=== PATIENT | male | born 1995 | race Caucasian/White ===

== ENCOUNTER 2016-10-26 22:29 | Emergency (ER) | payer OTHER ==
[2016-10-26 23:34] VITALS: BP 116/46
[2016-10-27 01:00] LABS: Hematocrit 45 % (42-52); Hemoglobin 15.1 g/dl (14.0-18.0); Mean Corpuscular HGB Conc 34 g/dl (31-36); Mean Corpuscular Hemoglobin 31 pg (27-31); Mean Corpuscular Volume 90 fL (80-94); Mean Platelet Volume 9 um3 (7.4-10.4); Red Blood Count 4.94 10^6/ul (4.0-5.4); Red Cell Distribution Width 13 % (10.5-15); White Blood Count 6.9 10^3/ul (3.5-10.8)
[2016-10-27 01:17] LABS: Albumin 4.3 g/dL (3.2-5.2); BUN/Creatinine Ratio 22.5 (8-20); Calcium 9.6 mg/dL (8.6-10.3); EGFR African American 81.7 (>60); EGFR Non-African American 63.6 (>60); Globulin 3.3 g/dL (2-4); Magnesium 2.2 mg/dL (1.9-2.7); Potassium 3.8 mmol/L (3.5-5.0); Total Bilirubin 0.2 mg/dL (0.2-1.0); Total Protein 7.6 g/dL (6.4-8.9)
[2016-10-27 01:31] LABS: TSH (Thyroid Stimulating Horm) 1.5 mcIU/mL (0.34-5.60)
--- NOTE | 2016-10-27 02:23 | ED ---
HPI Cardiac - HPI Summary HPI Summary: Pt here w/ sensation of difficulty breathing which started yesterday. Was just "chilling" when he noticed this. Slept well last night. This morning, after getting up, noticed again he had trouble breathing when trying to take a deep breath. Was able to workout at the gym (ie lifting, squatting, etc) however reports he did make himself lightheaded a few times w/ strained breathing. Denies chest pain, ab pain, fever, chills, N/V/D, cough, sneezing, headache. Has had a mild ST from PND - nasal congestion and PND better after taking anti- histamine. Reports he's had sx like this in the past. Once as a senior in high school. Had a CXR then which was normal and sx eventually resolved on their own. Did try a nebulizer tx which made him feel worse. Had sx most recently about 2 months ago - was intermittent then and PCP ordered CXR but pt didn't have this done as he traveled back to school from home - resolved again w/o tx. He's here today as he's concerned about the consistency of his sx. Denies cardiac issues. Performs cardio exercise and/or resistance training 6 days a week w/o difficulty. No fam h/o cardiac issues. No recent travel, no smoking tobacco, no hormone use, no prolonged sitting, no h /o cancer, no h/o clotting issues, no recent trauma although he does admit he partakes in bowing. - History of Current Complaint Chief Complaint: EDUpperRespComplaint Stated Complaint: DIFF BREATHING Time Seen by Provider: 10/27/16 00:08 Hx Obtained From: Patient Pain Intensity: 4 - Allergy/Home Medications Allergies/Adverse Reactions: Allergies Allergy/AdvReac Type Severity Reaction Status Date / Time Clindamycin Allergy Mild Hives Verified 10/26/16 22:36 PMH/Surg Hx/FS Hx/Imm Hx Previously Healthy: Yes Endocrine/Hematology History: Denies: Hx Anticoagulant Therapy, Hx Blood Disorders, Hx Thyroid Disease, Hx Anemia, Hx Unexplained Bleeding, Hx Coagulopothy, Autoimmune Disease Cardiovascular History: Denies: Hx Congenital Heart Disease, Hx Deep Vein Thrombosis, Hx Embolism Respiratory History: Denies: Hx Asthma, Hx Chronic Bronchitis, Hx Pneumonia, Hx Seasonal Allergies GI History: Denies: Hx Gastroesophageal Reflux Disease Psychiatric History: Reports: Hx Anxiety Infectious Disease History: No Infectious Disease History: Denies: Traveled Outside the [place] in Last 30 Days - Family History Known Family History: Positive: None - Social History Occupation: Student Lives: With Family - frat house Alcohol Use: Weekly - 2-3 x week Substance Use Type: Reports: None, Marijuana - occasionally Hx Tobacco Use: No Smoking Status (MU): Never Smoked Tobacco Review of Systems Negative: Fever, Chills, Fatigue ENT: Other - see HPI Negative: Palpitations, Chest Pain Respiratory: Other - see HPI Negative: Abdominal Pain, Vomiting, Diarrhea, Nausea Positive: no symptoms reported Musculoskeletal: Other - admits he's not very flexible Negative: Arthralgia, Myalgia Negative: Rash, Bruising Neurological: Negative Negative: Headache, Weakness, Paresthesia, Numbness, Syncope, Slurred Speech Psychological: Normal - concerned - denies feeling more stressed than usual All Other Systems Reviewed And Are Negative: Yes Physical Exam Triage Information Reviewed: Yes Vital Signs On Initial Exam: Initial Vitals Temp Pulse Resp BP Pulse Ox 98.4 F 94 16 133/62 100 10/26/16 22:30 10/26/16 22:30 10/26/16 22:30 10/26/16 22:30 10/26/16 22:30 Vital Signs Reviewed: Yes Appearance: Positive: Well-Appearing, No Pain Distress, Well-Nourished Skin: Positive: Warm, Dry - no rash Head/Face: Positive: Normal Head/Face Inspection Eyes: Positive: Normal, EOMI, Conjunctiva Clear. Negative: Conjunctiva Inflammed, Discharge ENT: Positive: Normal ENT inspection, Hearing grossly normal, Pharynx normal, TMs normal. Negative: Nasal congestion, Nasal drainage Neck: Positive: Supple, Nontender Respiratory/Lung Sounds: Positive: Clear to Auscultation, Breath Sounds Present. Negative: Rales, Rhonchi, Stridor, Tracheal Deviation, Wheezes Cardiovascular: Positive: Normal, RRR, Pulses are Symmetrical in both Upper and Lower Extremities, S1, S2. Negative: Murmur, Rub, Leg Edema Left, Leg Edema Right - (-) Santos's sign Abdomen Description: Positive: Nontender, No Organomegaly, Soft Bowel Sounds: Positive: Present Musculoskeletal: Positive: Normal, Strength/ROM Intact Neurological: Positive: Normal, Sensory/Motor Intact, Alert, Oriented to Person Place, Time, CN Intact II-III Psychiatric: Positive: Anxious Diagnostics - Vital Signs Vital Signs Temp Pulse Resp BP Pulse Ox 10/26/16 23:33 98.0 F 71 16 116/46 100 10/26/16 22:30 98.4 F 94 16 133/62 100 - Laboratory Lab Results: Lab Results 10/27/16 10/27/16 10/27/16 Range/Units 00:45 00:45 00:45 WBC 6.9 (3.5-10.8) 10^3/ul RBC 4.94 (4.0-5.4) 10^6/ul Hgb 15.1 (14.0-18.0) g/dl Hct 45 (42-52) % MCV 90 (80-94) fL MCH 31 (27-31) pg MCHC 34 (31-36) g/dl RDW 13 (10.5-15) % Plt Count 214 (150-450) 10^3/ul MPV 9 (7.4-10.4) um3 Neut % (Auto) 61.0 (38-83) % Lymph % (Auto) 29.8 (25-47) % [place] % (Auto) 7.6 (1-9) % Eos % (Auto) 1.0 (0-6) % Baso % (Auto) 0.6 (0-2) % Absolute Neuts (auto) 4.2 (1.5-7.7) 10^3/ul Absolute Lymphs (auto) 2.1 (1.0-4.8) 10^3/ul Absolute Monos (auto) 0.5 (0-0.8) 10^3/ul Absolute Eos (auto) 0.1 (0-0.6) 10^3/ul Absolute Basos (auto) 0 (0-0.2) 10^3/ul Absolute Nucleated RBC 0.01 10^3/ul Nucleated RBC % 0.1 D-Dimer, Quantitative < 200 (Less Than 230) ng/mL Sodium 135 (133-145) mmol/L Potassium 3.8 (3.5-5.0) mmol/L Chloride 101 (101-111) mmol/L Carbon Dioxide 27 (22-32) mmol/L Anion Gap 7 (2-11) mmol/L BUN 32 H (6-24) mg/dL Creatinine 1.42 H (0.67-1.17) mg/dL Est GFR ( Amer) 81.7 (>60) Est GFR (Non-Af Amer) 63.6 (>60) BUN/Creatinine Ratio 22.5 H (8-20) Glucose 96 (70-100) mg/dL Calcium 9.6 (8.6-10.3) mg/dL Magnesium 2.2 (1.9-2.7) mg/dL Total Bilirubin 0.20 (0.2-1.0) mg/dL AST 20 (13-39) U/L ALT 16 (7-52) U/L Alkaline Phosphatase 66 (34-104) U/L Total Protein 7.6 (6.4-8.9) g/dL Albumin 4.3 (3.2-5.2) g/dL Globulin 3.3 (2-4) g/dL Albumin/Globulin Ratio 1.3 (1-3) TSH 1.50 (0.34-5.60) mcIU/mL Result Diagrams: 10/27/16 00:45 10/27/16 00:45 Lab Statement: Any lab studies that have been ordered have been reviewed, and results considered in the medical decision making process. Re-Evaluation - Re-Evaluation First Eval Change: Improved - s/p diaphragm breathing technique Disposition - Course Course Of Treatment: Pt presents w/ dyspnea. Studies are neg for life threatening pathology and pt has relief w/ diaphragm breathing. Also admits he' s inflexible. Agrees to try breathing exercises and possibly massage, yoga, relaxation techniques. Will f/u w/ [facility] for resources. Reviewed danger s/ sx of when to return to ED. - Diagnoses Provider Diagnoses: Dyspnea Discharge - Discharge Plan Condition: Stable Disposition: HOME Patient Education Materials: Dyspnea (ED) Referrals: [facility] FAUSTINO Jauregui [Medical Doctor] - Additional Instructions: It is suspected your sensation of difficulty breathing is coming from under utilization of your diaphragm. Practice diaphragm breathing daily. You may also benefit from yoga and massage. Follow-up with [facility] for more resources. *If you develop chest pain, shortness of breath, fever, chills, return to ED
--- NOTE | 2016-10-27 07:45 | RAD ---
HISTORY: Dyspnea COMPARISONS: None VIEWS: 2: Frontal dual-energy and lateral views of the chest. FINDINGS: CARDIOMEDIASTINAL SILHOUETTE: The cardiomediastinal silhouette is normal. JEANINE: The jeanine are normal. PLEURA: The costophrenic angles are sharp. No pleural abnormalities are noted. LUNG PARENCHYMA: The lungs are clear. ABDOMEN: The upper abdomen is clear. There is no subphrenic gas. BONES AND SOFT TISSUES: No bone or soft tissue abnormalities are noted. OTHER: None. IMPRESSION: NO ACTIVE CARDIOPULMONARY DISEASE.
== END 2016-10-27 02:16 | disposition home or self-care (01) ==
LOC: ED 22:29
DX: R06.00 Dyspnea, unspecified (principal)
CPT/HCPCS: 36415; 71020; 80053; 83735; 84443; 85025; 85379; 99282

== ENCOUNTER 2016-12-19 02:04 | Emergency (ER) | payer OTHER, MEDICAID ==
[2016-12-19 02:08] VITALS: BP 130/58
--- NOTE | 2016-12-19 02:41 | ED ---
Sanjeev Jesus Billy, scribed for Cy Piper MD on 12/19/16 at 0216 . Substance Abuse/Use - HPI Summary HPI Summary: Patient is a 21 year-old male coming to [facility] feeling anxious after consuming psychedelic mushrooms today. Amount unspecified. He is anxious that he is not breathing and that his heart is not beating. - History Of Current Complaint Chief Complaint: EDSubstanceAbuse Stated Complaint: SUBSTANCE USE Time Seen by Provider: 12/19/16 02:09 Hx Obtained From: Patient Onset/Duration of Drug/ETOH Abuse: Hours Ingestion History: Type/Name Of Drug - mushrooms Overdose Characteristics: Oral Timing Of Abuse: Binge Use Severity Initially: Moderate Severity Currently: Moderate Character: Fearful, Anxious Aggravating Factor(s): Nothing Alleviating Factor(s): Nothing Associated Signs And Symptoms: Intentional Ingestion - Allergies/Home Medications Allergies/Adverse Reactions: Allergies Allergy/AdvReac Type Severity Reaction Status Date / Time Clindamycin Allergy Mild Hives Verified 10/26/16 22:36 PMH/Surg Hx/FS Hx/Imm Hx Endocrine/Hematology History: Denies: Hx Anticoagulant Therapy, Hx Blood Disorders, Hx Thyroid Disease, Hx Anemia, Hx Unexplained Bleeding Cardiovascular History: Denies: Hx Congenital Heart Disease, Hx Deep Vein Thrombosis, Hx Embolism Respiratory History: Denies: Hx Asthma, Hx Chronic Bronchitis, Hx Pneumonia, Hx Seasonal Allergies GI History: Denies: Hx Gastroesophageal Reflux Disease Psychiatric History: Reports: Hx Anxiety Infectious Disease History: No Infectious Disease History: Denies: Traveled Outside the [place] in Last 30 Days - Family History Known Family History: Negative: Cardiac Disease - Social History Alcohol Use: Weekly - 2-3 x week Substance Use Type: Reports: None, Marijuana - occasionally Hx Tobacco Use: No Smoking Status (MU): Never Smoked Tobacco Review of Systems Negative: Fever Positive: Anxious All Other Systems Reviewed And Are Negative: Yes Physical Exam Triage Information Reviewed: Yes Vital Signs On Initial Exam: Initial Vitals Temp Pulse Resp BP Pulse Ox 97.7 F 98 16 130/58 99 12/19/16 02:07 12/19/16 02:07 12/19/16 02:07 12/19/16 02:07 12/19/16 02:07 Vital Signs Reviewed: Yes Appearance: Positive: Well-Appearing, No Pain Distress Skin: Positive: Warm Head/Face: Positive: Normal Head/Face Inspection Eyes: Positive: ROSANNA ENT: Positive: Hearing grossly normal Neck: Positive: Supple Respiratory/Lung Sounds: Positive: Breath Sounds Present Cardiovascular: Positive: RRR Abdomen Description: Positive: Nontender, Soft Bowel Sounds: Positive: Present Musculoskeletal: Positive: Strength/ROM Intact Neurological: Positive: Sensory/Motor Intact, Alert, Oriented to Person Place, Time Psychiatric: Positive: Affect/Mood Appropriate Diagnostics - Vital Signs Vital Signs Temp Pulse Resp BP Pulse Ox 12/19/16 02:07 97.7 F 98 16 130/58 99 - Laboratory Result Diagrams: 12/19/16 02:30 12/19/16 02:30 Lab Statement: Any lab studies that have been ordered have been reviewed, and results considered in the medical decision making process. Re-Evaluation - Re-Evaluation First Eval Change: Improved Course/Dx - Diagnoses Provider Diagnoses: toxic ingestion Discharge - Discharge Plan Condition: Stable Disposition: HOME Patient Education Materials: Polysubstance Abuse (ED) Referrals: [facility] [Primary Care Provider] - The documentation as recorded by the Sanjeev adler Billy accurately reflects the service I personally performed and the decisions made by , Cy Piper MD.
[2016-12-19 02:46] LABS: Hematocrit 47 % (42-52); Hemoglobin 15.9 g/dl (14.0-18.0); Mean Corpuscular HGB Conc 34 g/dl (31-36); Mean Corpuscular Hemoglobin 31 pg (27-31); Mean Corpuscular Volume 90 fL (80-94); Mean Platelet Volume 9 um3 (7.4-10.4); Red Cell Distribution Width 13 % (10.5-15); White Blood Count 7.4 10^3/ul (3.5-10.8)
[2016-12-19 02:59] LABS: ALT 12 U/L (7-52); AST 18 U/L (13-39); Albumin 4.7 g/dL (3.2-5.2); Alkaline Phosphatase 56 U/L (34-104); Anion Gap 9 mmol/L (2-11); Blood Urea Nitrogen 26 mg/dL (6-24); CO2 Carbon Dioxide 26 mmol/L (22-32); Chloride 99 mmol/L (101-111); EGFR African American 122.5 (>60); EGFR Non-African American 95.3 (>60); Globulin 3.1 g/dL (2-4); Glucose 133 mg/dL (70-100); Potassium 3.6 mmol/L (3.5-5.0); Sodium 134 mmol/L (133-145); Total Protein 7.8 g/dL (6.4-8.9)
[2016-12-19 03:05] LABS: Acetaminophen < 15 mcg/mL; Alcohol < 10 mg/dL (<10); Salicylate < 2.50 mg/dL (<30)
== END 2016-12-19 06:21 | disposition home or self-care (01) ==
LOC: ED 02:04
DX: T62.0X1A Toxic effect of ingested mushrooms, accidental (unintentional), initial encounter (principal); Y92.9 Unspecified place or not applicable
CPT/HCPCS: 36415; 80053; 80320; 80329; 83605; 85025; 99282; G0480

== ENCOUNTER 2017-12-02 00:10 | Emergency (ER) | payer MEDICAID, OTHER ==
[2017-12-02] MEDS ORDERED: Tetan/Diph/Pertus SYR(Tdap)* 0.5 ML SYR(BOOSTRIX) use SYR IM ONE (03:32)
[2017-12-02 03:48] VITALS: BP 121/71
--- NOTE | 2017-12-02 05:22 | ED ---
Diana Jesus Rebecca, scribed for Erick Suarez MD on 12/02/17 at 0242 . Laceration/Wound HPI - HPI Summary HPI Summary: Pt is a 22 y/o M who presents to ED with a laceration. At approximately 0000, he had dropped a kitchen knife while cutting fruit and caught it while falling. Laceration is on the right 5th finger. Tetanus is UTD, pt is a sheila in college. Right hand dominant. - History of Current Complaint Stated Complaint: FINGER LAC Time Seen by Provider: 12/02/17 02:35 Hx Obtained From: Patient Mechanism of Injury: Sharp/Blunt Trauma - Kitchen knife Onset/Duration: Still Present Current Severity: Mild Pain Intensity: 3 Pain Scale Used: 0-10 Numeric Associated Signs & Symptoms: Negative - Allergy/Home Medications Allergies/Adverse Reactions: Allergies Allergy/AdvReac Type Severity Reaction Status Date / Time clindamycin Allergy Hives/Diff. Verified 12/02/17 00:19 Breathing/I tching PMH/Surg Hx/FS Hx/Imm Hx Endocrine/Hematology History: Denies: Hx Anticoagulant Therapy, Hx Blood Disorders, Hx Thyroid Disease, Hx Anemia, Hx Unexplained Bleeding Cardiovascular History: Denies: Hx Congenital Heart Disease, Hx Deep Vein Thrombosis, Hx Embolism Respiratory History: Denies: Hx Asthma, Hx Chronic Bronchitis, Hx Pneumonia, Hx Seasonal Allergies GI History: Denies: Hx Gastroesophageal Reflux Disease Psychiatric History: Reports: Hx Anxiety Infectious Disease History: No Infectious Disease History: Denies: Traveled Outside the [place] in Last 30 Days - Family History Known Family History: Negative: Cardiac Disease - Social History Alcohol Use: Weekly - 2-3 x week Substance Use Type: Reports: None, Marijuana - occasionally Substance Use Comment - Amount & Last Used: mushrooms Hx Tobacco Use: No Smoking Status (MU): Never Smoked Tobacco Review of Systems Negative: Fever Positive: Other - right 5th finger laceration All Other Systems Reviewed And Are Negative: Yes Physical Exam - Summary Physical Exam Summary: Appearance: Well appearing, no pain distress Skin: warm, dry, reflects adequate perfusion Head/face: normal Eyes: EOMI, ROSANNA ENT: normal Neck: supple, non-tender Respiratory: CTA, breath sounds present Cardiovascular: RRR, pulses symmetrical Musculoskeletal: the right small finger DIP joint is held in extension and he is unable to flex the DIP, able to flex the PIP joint, he has some tenderness over the flexor sheath proximally, there is a laceration over the volar PIP flexor crease and is about 1 cm in length, non-bleeding Neuro: normal, sensory motor intact, A&Ox3 Triage Information Reviewed: Yes Vital Signs On Initial Exam: Initial Vitals Temp Pulse Resp BP Pulse Ox 97.9 F 87 20 123/59 97 12/02/17 00:14 12/02/17 00:14 12/02/17 00:14 12/02/17 00:14 12/02/17 00:14 Vital Signs Reviewed: Yes Procedures - Splinting Location: right small finger Pre-Made Type: premade plastics/foam Splint: volar Pre-Proc Neuro Vasc Exam: normal Post-Proc Neuro Vasc Exam: normal - Laceration/Wound Repair 1 Location: upper extremity - Right hand - 5th finger Anesthesia: 1.0%, Lido - 1 cc Length, Depth and Shape: 1 cm Irrigated w/ Saline (ccs): 100 - Washed out under pressure Closure: Single Layer Suture Type: Prolene - 5-0 prolene Number of Sutures: 1 Sterile Dressing Applied?: Yes - Put him in a volar splint that was secured with coban Diagnostics - Vital Signs Vital Signs Temp Pulse Resp BP Pulse Ox 12/02/17 00:14 97.9 F 87 20 123/59 97 - Laboratory Lab Statement: Any lab studies that have been ordered have been reviewed, and results considered in the medical decision making process. Re-Evaluation - Re-Evaluation First Eval Re-Evaluation Time: 03:00 Change: Improved Laceration Repair Course/Dx - Course Course Of Treatment: Tdap given. Flexor tendon lac with deficit. Irrigated out. Lac loosely closed. Patient previously interned with a hand surgeon in [place] and will leave in the morning to go directly to his office for repair of the tendon laceration. He did not want local hand surgery follow-up. - Clinical Impression Provider Diagnoses: Laceration of flexor tendon of right hand, Laceration of right little finger Discharge - Sign-Out/Discharge Documenting (check all that apply): Discharge/Admit/Transfer - Discharge - Discharge Plan Condition: Good Disposition: HOME Prescriptions: Cephalexin CAP* [Keflex CAP*] 500 mg PO TID #21 cap Patient Education Materials: Tendon Laceration (ED) Referrals: [facility] [Primary Care Provider] - Additional Instructions: Call Dr Villafana in the morning for an appt and have him repair the tendon. Return if worse, concern for infection, or other concerns. - Billing Disposition and Condition Condition: STABLE Disposition: HOME The documentation as recorded by the Diana adler Rebecca accurately reflects the service I personally performed and the decisions made by me, Erick Suarez MD.
== END 2017-12-02 03:46 | disposition home or self-care (01) ==
LOC: ED 00:10
DX: S66.126A Laceration of flexor muscle, fascia and tendon of right little finger at wrist and hand level, initial encounter (principal); W26.0XXA Contact with knife, initial encounter; F41.9 Anxiety disorder, unspecified; Y93.G1 Activity, food preparation and clean up; Y92.9 Unspecified place or not applicable
CPT/HCPCS: 12001; 90471; 90715; 99281